=== PATIENT | male | born 1935 | race Caucasian/White ===

== ENCOUNTER 2017-08-25 11:07 | Inpatient (IN) | payer MEDICARE, SELFPAY ==
[2017-08-25] VITALS (10 sets, daily range): BP systolic 147–195; BP diastolic 74–95; PULSE 55–72; RESP 16–18; TEMP 36.6–37.1; O2SAT 95–98; BMI 28.0; BMI 27.6
--- NOTE | 2017-08-25 11:59 | EKG12_ITS ---
Test Reason : CP Blood Pressure : / mmHG Vent. Rate : 069 BPM Atrial Rate : 069 BPM P-R Int : 134 ms QRS Dur : 092 ms QT Int : 436 ms P-R-T Axes : 020 054 035 degrees QTc Int : 467 ms Normal sinus rhythm Nonspecific ST abnormality Abnormal ECG Confirmed by MATT GOLDEN, EVELYNE ([id number]), newspaper or periodical editor DEEPALI COOPER ([id number]) on 08/29/2017 2:20:17 PM Referred By: HARSHA/LC Confirmed By:EVELYNE GUTIERREZ MD
[2017-08-25 12:10] LABS: Absolute Lymphocyte Count 1.27 X10^3/ul (0.83-4.51); Absolute Neutrophil Count 4.6 X10^3/uL (2.0-7.7); Basophil# 0.02 X10^3/uL; Basophil% 0.3 % (0-1); Eosinophil# 0.01 X10^3/uL; Eosinophils% 0.2 % (0-5); Hematocrit 42.2 % (40-54); Hemoglobin 14.2 g/dl (13.0-16.5); Lymphocyte # 1.27 X10^3/ul (4.0); Lymphocyte % 20.1 % (19-41); Mean Corp Hgb Conc 33.6 g/gl (32-36); Mean Corpuscular Hgb 29.5 pg (27.0-32.0); Mean Corpuscular Volume 87.7 fL (80-94); Mean Platelet Vol. 10.9 fl (6.2-12.0); Monocyte# 0.46 X10^3/uL; Monocyte% 7.3 % (0-10); Neutrophil # 4.55 X10^3/uL (2.7-7.7); Neutrophil % 72.1 % (47-70); Platelet Count 170 K/mm3 (150-450); RBC Distribution Width CV 12.9 % (11.6-14.6); RBC Distribution Width SD 41.6 fl (35.1-43.9); Red Blood Count 4.81 M/mm3 (4.6-6.2); White Blood Count 6.3 K/mm3 (4.4-11.0)
--- NOTE | 2017-08-25 12:10 | RAD_ITS ---
STUDY: X-RAY CHEST REASON FOR EXAM: Male, 82 years old. Chest pain. TECHNIQUE: Single AP portable view of the chest. COMPARISON: None. FINDINGS: EKG electrodes are seen. Scattered calcified granulomas. The lungs are clear. There is no demonstrated pleural abnormality. Sternal cerclage wires and vascular clips are present from a prior sternotomy and coronary artery bypass graft procedure (CABG). Normal mediastinum and domingo. Normal visualized pulmonary arteries. There is atherosclerotic calcification of the aortic arch with tortuosity. There are diffuse degenerative changes of the visualized thoracic spine. There is degenerative osteoarthritis of the bilateral shoulders. There is no demonstrated abnormality of the visualized soft tissue structures of the upper abdomen. RAD/Chest 1 View (Portable) IMPRESSION: No acute amount is seen. Electronically Signed: Doug Antony MD at 12:58 EDT Tel [phone], Service support ,
[2017-08-25 12:11] LABS: POSITIVE COUNT NO; POSITIVE DIFFERENTIAL NO; POSITIVE MORPHOLOGY NO
[2017-08-25 12:25] LABS: Anion Gap 9 (5-15); BUN 14 mg/dL (7-18); BUN/Creat Ratio 15.6 RATIO (10-20); Calcium,Total 8.8 mg/dL (8.5-10.1); Chloride 105 mmol/L (98-107); EST Glomerular Filtration Rate 86 mL/min (>60); Est Glom Filt Rate - Afr Amer 104 mL/min (>60); Estimated Creatinine Clearance 56.12 ml/min; Glucose 106 mg/dL (74-106); Sodium Level 141 mmol/L (136-145)
--- NOTE | 2017-08-25 12:26 | ED.RN ---
critical troponin received of 0.76. Dr. Talley notified, no new orders at this time
[2017-08-25] MEDS: Nitroglycerin Oint 1 INCH PACKET TRANSDERM. (13:18)
[2017-08-25] MEDS: Enoxaparin 80 MG/0.8 ML Syringe SC (13:18)
[2017-08-25] MEDS: Clopidogrel Bisulfate 300 MG Tablet PO (13:18)
[2017-08-25] MEDS: Aspirin 81 MG TAB.CHEW 324 MG PO (13:18)
--- NOTE | 2017-08-25 13:18 | ED.VISSUMM ---
- ER Visit Summary Date of Service: 08/25/17 Chief Complaint: Chest pain History of Present Illness: The patient is a 82 M presents today with midsternal chest pain resolved with nitroglycerin. Patient had a CABG in March [address] [facility] [address] Tidwell. He states he does not currently take any medications. He has had no difficulties in recent months. Last night he developed a chest pain in the center of his chest but it was not bad. He woke this morning with it being severe noting nausea vomiting and sweating. He did take a nitroglycerin that he had which resolved his symptoms. Physical Examination: 163/87 heart rate 69 respirations are 18 pulse ox 98% temperature 98? Gen: Well-nourished well-developed Head: Normocephalic atraumatic Eyes: Perrl EOMI ENT: TMs clear no rhinorrhea moist mucous membranes Neck: Supple no lymphadenopathy no JVD nontender CVS: Regular rate rhythm no murmurs normal S1-S2 Respiratory: No distress clear to auscultation bilaterally chest nontender Abdomen: Soft nontender nondistended normal bowel sounds no masses Back: Nontender Extremity: Nontender no edema Skin: Normal color no rash Neuro: alert orientated ?3 CN II-XII intact normal strength sensation reflexes gait cerebellar Psych: Normal affect normal mood Test Results: EKG shows a sinus rhythm at a rate of 69. This shows a biphasic P wave in V1 through V3. CBC and chemistries negative. Troponin 0 0.761. Chest x-ray negative Emergency Department Course and Treatment: Patient received aspirin subcutaneous Lovenox 300 mg of Plavix and 1 inch of Nitropaste. I spoke with Dr. Montana for cardiology and our plan is admission. Dr. Trinh will be admitting for medicine. Impression: 1. NSTEMI 2. Unstable angina This note was generated with [employer] dictation software. It may contain incorrect words, spelling, and punctuation that were not noted in review of the chart prior to signing ED Disposition - Plan for ED Patient: Chief Complaint: Chest Pain Referrals: Asa Merrill DO [Primary Care Provider] -
--- NOTE | 2017-08-25 13:22 | ED.DCSUM_ITS ---
- ER Visit Summary Date of Service: 08/25/17 Chief Complaint: Chest pain History of Present Illness: The patient is a 82 M presents today with midsternal chest pain resolved with nitroglycerin. Patient had a CABG in March 2004 at [facility] by Dr. Tidwell. He states he does not currently take any medications. He has had no difficulties in recent months. Last night he developed a chest pain in the center of his chest but it was not bad. He woke this morning with it being severe noting nausea vomiting and sweating. He did take a nitroglycerin that he had which resolved his symptoms. Physical Examination: 163/87 heart rate 69 respirations are 18 pulse ox 98% temperature 98? Gen: Well-nourished well-developed Head: Normocephalic atraumatic Eyes: Perrl EOMI ENT: TMs clear no rhinorrhea moist mucous membranes Neck: Supple no lymphadenopathy no JVD nontender CVS: Regular rate rhythm no murmurs normal S1-S2 Respiratory: No distress clear to auscultation bilaterally chest nontender Abdomen: Soft nontender nondistended normal bowel sounds no masses Back: Nontender Extremity: Nontender no edema Skin: Normal color no rash Neuro: alert orientated ?3 CN II-XII intact normal strength sensation reflexes gait cerebellar Psych: Normal affect normal mood Test Results: EKG shows a sinus rhythm at a rate of 69. This shows a biphasic P wave in V1 through V3. CBC and chemistries negative. Troponin 0 0.761. Chest x-ray negative Emergency Department Course and Treatment: Patient received aspirin subcutaneous Lovenox 300 mg of Plavix and 1 inch of Nitropaste. I spoke with Dr. Montana for cardiology and our plan is admission. Dr. Trinh will be admitting for medicine. Impression: 1. NSTEMI 2. Unstable angina This note was generated with [employer] dictation software. It may contain incorrect words, spelling, and punctuation that were not noted in review of the chart prior to signing ED Disposition - Plan for ED Patient: Chief Complaint: Chest Pain Referrals: Asa Merrill DO [Primary Care Provider] -
--- NOTE | 2017-08-25 13:27 | PCM.HP.STD ---
Problem List (1) Acute shq-TS-geguvcjle myocardial infarction Status: Acute (2) Status post coronary artery bypass graft Status: Chronic (3) Coronary artery disease Status: Chronic History of Present Illness Date of Admission: 08/25/17 Chief Complaint: Chest pain. The patient is a 82 year old M with past medical history as mentioned above presented to the medicine because of chest pain. His symptoms started this morning after his breakfast when he was sitting with retrosternal chest pain, severe sharp pain, 10 out of 10 in severity, not radiating, associated with vomiting and drenching sweats, relieved by nitroglycerin and without aggravating factors. He denies associated shortness of breath, palpitation, dizziness or lightheadedness. He took nitroglycerin at home and it did help. At this time, is chest pain-free. He had a history of CABG 13 years ago but he is not taking any medication since then. He does not have a turkey farmer. In the emergency department, his blood pressure was slightly elevated, other vital signs were stable. His routine blood work was unremarkable. EKG revealed normal sinus rhythm, normal RI interval, normal QRS, normal QTC and no evidence of acute ischemic changes. Troponin is 0.76. Chest x-ray showed no acute findings. He was given 1 dose of aspirin 324 mg, Plavix 300 mg, Lovenox 80 mg ?1 and started on nitroglycerin patch. He is being admitted for acute non-ST elevation NE. Past Medical History Past Medical History (Chronic Problems): Chronic Problems Status post coronary artery bypass graft (Chronic) Coronary artery disease (Chronic) Allergies No Known Allergies Allergy (Verified 08/25/17 11:08) Home Medications: Ambulatory Orders Medication Instructions Recorded NK [NK] 08/25/17 Surgical History: coronary bypass surgery Psychiatric History: No pertinent psych hx Smoking Status: Never smoker Alcohol: None Drugs: None - *Family History Maternal History Items: No pertinent history Paternal History Items: No pertinent history Review of Systems Constitutional: Denies: Anorexia, Chills, Fever, Weakness, Fatigue Eyes: Denies: Blurred vision, Double vision, Drainage, Redness HEENT: Denies: Difficulty Hearing, Ear Pain, Eye Pain, Nasal Congestion, Sore Throat Cardiovascular: Reports: Chest Pain. Denies: Chest Tightness, Edema, Heaviness, Light Headedness, Orthopnea, Palpitations, Syncope Respiratory: Denies: Cough, Pleuritic Pain, Shortness of Breath, Sputum production, Wheezing Gastrointestinal: Reports: Nausea, Vomiting. Denies: Abdominal Pain, Constipation, Diarrhea Genitourinary: Denies: Dysuria, Frequency, Hematuria Musculoskeletal: Denies: Arm Pain, Back Pain, Foot Pain Skin: Denies: Dryness, Rash Neurological: Denies: Balance problems, Double vision, Change in Speech, Slurred speech, Confusion, Headaches, Incoordination, Numbness Psychiatric: Denies: Anxiety, Depression Endocrine: Denies: Change in Body Habitus, Polydipsia VTE Information - Inpt Only VTE Present on Admission: No VTE Mechan Device Prophylaxis: None VTE Pharm Prophylaxis ordered?: Yes Patient Problems: Active and Suspected Problems Acute uwh-BX-bbodweqdy myocardial infarction (Acute) - Physical Exam General: Alert, Oriented x3, Cooperative, No apparent distress HEENT: Atraumatic, PERRLA, EOMI, Normocephalic Oral: Moist Mucosa, No Gingival or Mucosal Lesions/ Ulcerations Neck: Supple, No JVD, Negative Carotid Bruits, Trachea Midline, Thyroid Normal Size and Texture Lungs: Clear to auscultation, No rhonchi, No wheeze, No rales, Diminished Cardiovascular: Regular rate, Regular Rhythm, Normal S1, Normal S2, No murmurs, PMI Normal Abdomen: Bowel Sounds Present, Soft, Non Tender, Non-Distended, No Hepato-splenomegaly, Obese Extremities: No clubbing, No cyanosis, No edema Skin: No rashes, No breakdown Lymphatic: No Cervical, Supraclavicular, or Inguinal Adenopathy Neurological: Cranial nerves II-XII grossly intact, Motor Exam 5/5 strength throughout Psych/Mental Status: Normal Affect, Appropriate, Alert and oriented to time, place, person, mood and affect Vital Signs Temp Pulse Resp BP Pulse Ox 98.0 F 69 18 163/87 H 98 08/25/17 11:09 08/25/17 12:33 08/25/17 12:33 08/25/17 12:33 08/25/17 12:33 Oxygen Flow Rate (L/min) 2 Oxygen Delivery Method Nasal Cannula Weight: 173 lb 8.061 oz Body Mass Index (BMI) 28.0 Laboratory Tests Past 24 Hrs 08/25/17 08/25/17 11:40 11:40 WBC 6.3 RBC 4.81 Hgb 14.2 Hct 42.2 MCV 87.7 MCH 29.5 MCHC 33.6 RDW 12.9 RDW Differential 41.6 Plt Count 170 MPV 10.9 Immature Gran % (Auto) 0.000 Neut % (Auto) 72.1 H Lymph % (Auto) 20.1 [place] % (Auto) 7.3 Eos % (Auto) 0.2 Baso % (Auto) 0.3 Absolute Neuts (auto) 4.6 Absolute Lymphs (auto) 1.27 Total Counted Not Reportable Sodium 141 Potassium 4.0 Chloride 105 Carbon Dioxide 27.0 Anion Gap 9 BUN 14 Creatinine 0.90 Estim Creat Clear Calc 56.12 Est GFR (MDRD) Af Amer 104 Est GFR (MDRD) Non-Af 86 BUN/Creatinine Ratio 15.6 Glucose 106 Calcium 8.8 Troponin I 0.761 H* Clinical Impression(s) from Imaging Studies Chest X-Ray 08/25/17 12:10 IMPRESSION: No acute amount is seen. Electronically Signed: Doug Antony MD at 12:58 EDT Tel [phone], Service support , Assessment/Plan All Active Problems Acute git-IS-dfpiaizmc myocardial infarction (Acute) This is an 82 years old male patient presented to the emergency room because of chest pain in context of history of CAD status post CABG 13 years ago, found to have no acute ischemic changes on EKG and found to have elevated troponin, diagnosed with acute non-ST elevation NE. #1 acute non-STEMI: EKG reviewed, no acute ischemic changes. Troponin is elevated at 0.67. Patient received aspirin, Plavix, Lovenox and Nitro-Bid. At this time, he is chest pain-free. Blood pressure slightly elevated, other vital signs are stable. Routine blood work is unremarkable. Plan: Admit to PCU, cardiac monitoring, serial cardiac enzymes, repeat EKG tomorrow morning, fasting lipid profile, cardiology consult, start aspirin, Coreg, lisinopril, atorvastatin, PT OT evaluation and treatment. #2 CAD status post CABG: This was 13 years ago. Patient is not taking any medication at home and he mentioned that he did not take any medication since his bypass surgery. He does not have a turkey farmer. Plan to start him on aspirin, statins, beta blockers, NEREIDA inhibitors. #3 DVT prophylaxis: Subcu Lovenox. This note was generated with [employer] dictation software. It may contain incorrect words, spelling, and punctuation that were not noted in checking the note before signing. Code Visit Inpatient E&M: 72248 Init Hosp L3
--- NOTE | 2017-08-25 13:33 | NURSING ---
Tiffani notifed may transfer patient to PCU.
--- NOTE | 2017-08-25 13:34 | HP.PCM_ITS ---
Problem List (1) Acute wut-ZN-bpnopmpig myocardial infarction Status: Acute (2) Status post coronary artery bypass graft Status: Chronic (3) Coronary artery disease Status: Chronic History of Present Illness Date of Admission: 08/25/17 Chief Complaint: Chest pain. The patient is a 82 year old M with past medical history as mentioned above presented to the medicine because of chest pain. His symptoms started this morning after his breakfast when he was sitting with retrosternal chest pain, severe sharp pain, 10 out of 10 in severity, not radiating, associated with vomiting and drenching sweats, relieved by nitroglycerin and without aggravating factors. He denies associated shortness of breath, palpitation, dizziness or lightheadedness. He took nitroglycerin at home and it did help. At this time, is chest pain-free. He had a history of CABG 13 years ago but he is not taking any medication since then. He does not have a yarn dyer. In the emergency department, his blood pressure was slightly elevated, other vital signs were stable. His routine blood work was unremarkable. EKG revealed normal sinus rhythm, normal MA interval, normal QRS, normal QTC and no evidence of acute ischemic changes. Troponin is 0.76. Chest x-ray showed no acute findings. He was given 1 dose of aspirin 324 mg, Plavix 300 mg, Lovenox 80 mg ? 1 and started on nitroglycerin patch. He is being admitted for acute non-ST elevation [place]. Past Medical History Past Medical History (Chronic Problems): Chronic Problems Status post coronary artery bypass graft (Chronic) Coronary artery disease (Chronic) Allergies No Known Allergies Allergy (Verified 08/25/17 11:08) Home Medications: Ambulatory Orders Medication Instructions Recorded NK [NK] 08/25/17 Surgical History: coronary bypass surgery Psychiatric History: No pertinent psych hx Smoking Status: Never smoker Alcohol: None Drugs: None - *Family History Maternal History Items: No pertinent history Paternal History Items: No pertinent history Review of Systems Constitutional: Denies: Anorexia, Chills, Fever, Weakness, Fatigue Eyes: Denies: Blurred vision, Double vision, Drainage, Redness HEENT: Denies: Difficulty Hearing, Ear Pain, Eye Pain, Nasal Congestion, Sore Throat Cardiovascular: Reports: Chest Pain. Denies: Chest Tightness, Edema, Heaviness , Light Headedness, Orthopnea, Palpitations, Syncope Respiratory: Denies: Cough, Pleuritic Pain, Shortness of Breath, Sputum production, Wheezing Gastrointestinal: Reports: Nausea, Vomiting. Denies: Abdominal Pain, Constipation, Diarrhea Genitourinary: Denies: Dysuria, Frequency, Hematuria Musculoskeletal: Denies: Arm Pain, Back Pain, Foot Pain Skin: Denies: Dryness, Rash Neurological: Denies: Balance problems, Double vision, Change in Speech, Slurred speech, Confusion, Headaches, Incoordination, Numbness Psychiatric: Denies: Anxiety, Depression Endocrine: Denies: Change in Body Habitus, Polydipsia VTE Information - Inpt Only VTE Present on Admission: No VTE Mechan Device Prophylaxis: None VTE Pharm Prophylaxis ordered?: Yes Patient Problems: Active and Suspected Problems Acute agh-CL-awugtyoaz myocardial infarction (Acute) - Physical Exam General: Alert, Oriented x3, Cooperative, No apparent distress HEENT: Atraumatic, PERRLA, EOMI, Normocephalic Oral: Moist Mucosa, No Gingival or Mucosal Lesions/ Ulcerations Neck: Supple, No JVD, Negative Carotid Bruits, Trachea Midline, Thyroid Normal Size and Texture Lungs: Clear to auscultation, No rhonchi, No wheeze, No rales, Diminished Cardiovascular: Regular rate, Regular Rhythm, Normal S1, Normal S2, No murmurs, PMI Normal Abdomen: Bowel Sounds Present, Soft, Non Tender, Non-Distended, No Hepato- splenomegaly, Obese Extremities: No clubbing, No cyanosis, No edema Skin: No rashes, No breakdown Lymphatic: No Cervical, Supraclavicular, or Inguinal Adenopathy Neurological: Cranial nerves II-XII grossly intact, Motor Exam 5/5 strength throughout Psych/Mental Status: Normal Affect, Appropriate, Alert and oriented to time, place, person, mood and affect Vital Signs Temp Pulse Resp BP Pulse Ox 98.0 F 69 18 163/87 H 98 08/25/17 11:09 08/25/17 12:33 08/25/17 12:33 08/25/17 12:33 08/25/17 12:33 Oxygen Flow Rate (L/min) 2 Oxygen Delivery Method Nasal Cannula Weight: 173 lb 8.061 oz Body Mass Index (BMI) 28.0 Laboratory Tests Past 24 Hrs 08/25/17 08/25/17 11:40 11:40 WBC 6.3 RBC 4.81 Hgb 14.2 Hct 42.2 MCV 87.7 MCH 29.5 MCHC 33.6 RDW 12.9 RDW Differential 41.6 Plt Count 170 MPV 10.9 Immature Gran % (Auto) 0.000 Neut % (Auto) 72.1 H Lymph % (Auto) 20.1 [place] % (Auto) 7.3 Eos % (Auto) 0.2 Baso % (Auto) 0.3 Absolute Neuts (auto) 4.6 Absolute Lymphs (auto) 1.27 Total Counted Not Reportable Sodium 141 Potassium 4.0 Chloride 105 Carbon Dioxide 27.0 Anion Gap 9 BUN 14 Creatinine 0.90 Estim Creat Clear Calc 56.12 Est GFR (MDRD) Af Amer 104 Est GFR (MDRD) Non-Af 86 BUN/Creatinine Ratio 15.6 Glucose 106 Calcium 8.8 Troponin I 0.761 H* Clinical Impression(s) from Imaging Studies Chest X-Ray 08/25/17 12:10 IMPRESSION: No acute amount is seen. Electronically Signed: Doug Antony MD at 12:58 EDT Tel [phone], Service support , Assessment/Plan All Active Problems Acute brs-LE-egedegism myocardial infarction (Acute) This is an 82 years old male patient presented to the emergency room because of chest pain in context of history of CAD status post CABG 13 years ago, found to have no acute ischemic changes on EKG and found to have elevated troponin, diagnosed with acute non-ST elevation NH. #1 acute non-STEMI: EKG reviewed, no acute ischemic changes. Troponin is elevated at 0.67. Patient received aspirin, Plavix, Lovenox and Nitro-Bid. At this time, he is chest pain-free. Blood pressure slightly elevated, other vital signs are stable. Routine blood work is unremarkable. Plan: Admit to PCU , cardiac monitoring, serial cardiac enzymes, repeat EKG tomorrow morning, fasting lipid profile, cardiology consult, start aspirin, Coreg, lisinopril, atorvastatin, PT OT evaluation and treatment. #2 CAD status post CABG: This was 13 years ago. Patient is not taking any medication at home and he mentioned that he did not take any medication since his bypass surgery. He does not have a yarn dyer. Plan to start him on aspirin, statins, beta blockers, NEREIDA inhibitors. #3 DVT prophylaxis: Subcu Lovenox. This note was generated with [employer] dictation software. It may contain incorrect words, spelling, and punctuation that were not noted in checking the note before signing. Code Visit Inpatient E&M: 81639 Init Hosp L3
--- NOTE | 2017-08-25 13:52 | EKG12_ITS ---
Test Reason : Blood Pressure : / mmHG Vent. Rate : 065 BPM Atrial Rate : 065 BPM P-R Int : 146 ms QRS Dur : 088 ms QT Int : 442 ms P-R-T Axes : 008 042 061 degrees QTc Int : 459 ms Normal sinus rhythm Nonspecific ST abnormality Abnormal ECG When compared with ECG of 09-APR-2004 06:41, No significant change was found Confirmed by MATT GOLDEN, EVELYNE ([id number]), advertising editor DEEPALI COOPER ([id number]) on 08/30/2017 1:12:18 PM Referred By: CARMEN Confirmed By:EVELYNE GUTIERREZ MD
[2017-08-25] MEDS: 0.9% NaCl Peripheral Flush Adult/Peds IV (14:37)
[2017-08-25] MEDS: 0.9% Normal Saline 1,000 ML 75 ML IV (14:37)
[2017-08-25 14:57] LABS: Hemoglobin A1c 6.3 % (4.2-6.3)
--- NOTE | 2017-08-25 16:19 | ECHOD_ITS ---
Reason For Study: Chest Pain Procedure This was a 2D Doppler, Color Flow transthoracic echocardiogram. Exam performed portable in patient room. Left Ventricle Mild concentric left ventricular hypertrophy. The estimated ejection fraction is 65 %. Stage 1 diastolic dysfunction. No regional wall motion abnormalities noted. Right Ventricle Normal size and thickness. Normal systolic function. Atria Normal left atrium. Normal right atrium. Normal atrial septum. Mitral Valve The mitral valve is structurally normal. No prolapse or stenosis seen. Tricuspid Valve Normal tricuspid valve. Unable to estimate RV systolic pressure due to inadequate jet, pulmonary artery pressure probably normal. Aortic Valve Trisinus/trileaflet aortic valve. Mild diffuse aortic valve thickening. Trivial aortic valve insufficiency. Pulmonic Valve Normal pulmonic valve. Mild (1+) pulmonic valve insufficiency identified. Great Vessels Normal aortic root. Normal arch. Normal inferior vena cava. Inferior vena cava collapse with sniff. Pericardium/Pleural No pericardial effusion. MMode/2D Measurements & Calculations LVIDd: 3.8 cm IVSd: 1.3 cm Ao root diam: 3.5 cm LVIDs: 2.7 cm LVPWd: 1.3 cm RVDd: 3.0 cm FS: 29.4 % LAV(MOD-bp): 30.8 ml EDV(MOD-sp4): 67.3 ml SV(MOD-sp4): 49.0 ml LAV(MOD-bp) Indexed: 16.4 ml/m2 ESV(MOD-sp4): 18.3 ml LAV(MOD-sp2): 25.3 ml EF(MOD-sp4): 72.8 % LAV(MOD-sp4): 37.4 ml LA A4 area: 16.8 cm2 RA A4 area: 11.0 cm2 Doppler Measurements & Calculations MV E max eze: 49.6 cm/sec Lat Peak E' Eze: 5.7 cm/sec Med Peak E' Eze: 4.5 cm/sec MV A max eze: 90.2 cm/sec E/E' lat: 8.6 E/E' med: 11.0 MV E/A: 0.55 Ao V2 max: 120.2 cm/sec LV V1 max: 88.5 cm/sec PA V2 max: 65.3 cm/sec Ao max P.8 mmHg LV V1 max P.1 mmHg Ao V2 mean: 89.3 cm/sec Ao mean P.4 mmHg Ao V2 VTI: 25.6 cm PI end-d eze: 99.4 cm/sec Interpretation Summary The estimated ejection fraction is 65 %. Stage 1 diastolic dysfunction. Unable to estimate RV systolic pressure due to inadequate jet, pulmonary artery pressure probably normal. Trivial aortic valve insufficiency. Mild concentric left ventricular hypertrophy. There is no comparison study available. Ordering Physician: Wei Montana Performed By: Mabel Cummings YOLANDA, RVT
[2017-08-25] MEDS: Carvedilol 3.125 MG TABLET PO (22:19)
[2017-08-25] MEDS: Atorvastatin Calcium 40 MG Tablet PO (22:19)
[2017-08-26 03:00] VITALS: PULSE 63
[2017-08-26] MEDS: Acetaminophen 325 MG Tablet 650 MG PO (03:58)
[2017-08-26 04:15] VITALS: BP 138/76; PULSE 62; RESP 18; TEMP 36.6; O2SAT 95
[2017-08-26] MEDS: 0.9% Normal Saline 1,000 ML 75 ML IV (05:05)
[2017-08-26 05:55] LABS: Absolute Neutrophil Count 3.9 X10^3/uL (2.0-7.7); Basophil# 0.02 X10^3/uL; Basophil% 0.3 % (0-1); Eosinophil# 0.08 X10^3/uL; Eosinophils% 1.2 % (0-5); Hematocrit 37.2 % (40-54); Hemoglobin 12.7 g/dl (13.0-16.5); Lymphocyte % 26.2 % (19-41); Mean Corp Hgb Conc 34.1 g/gl (32-36); Mean Corpuscular Volume 87.9 fL (80-94); Mean Platelet Vol. 10.6 fl (6.2-12.0); Monocyte# 0.83 X10^3/uL; Monocyte% 12.8 % (0-10); Neutrophil # 3.85 X10^3/uL (2.7-7.7); Neutrophil % 59.3 % (47-70); Platelet Count 141 K/mm3 (150-450); RBC Distribution Width CV 12.7 % (11.6-14.6); RBC Distribution Width SD 40.6 fl (35.1-43.9); Red Blood Count 4.23 M/mm3 (4.6-6.2); White Blood Count 6.5 K/mm3 (4.4-11.0)
--- NOTE | 2017-08-26 05:55 | EKG12_ITS ---
Test Reason : AM EKG Blood Pressure : / mmHG Vent. Rate : 060 BPM Atrial Rate : 060 BPM P-R Int : 150 ms QRS Dur : 094 ms QT Int : 488 ms P-R-T Axes : 025 055 083 degrees QTc Int : 488 ms Normal sinus rhythm Left ventricular hypertrophy Prolonged QT Abnormal ECG Confirmed by HOPE GOLDEN, GÓMEZ ([id number]), editorial manager DEEPALI COOPER ([id number]) on 09/01/2017 2:14:57 PM Referred By: NATASHA Confirmed By:GÓMEZ ARNETT MD
[2017-08-26 05:57] LABS: POSITIVE COUNT NO; POSITIVE DIFFERENTIAL NO; POSITIVE MORPHOLOGY NO
[2017-08-26 06:01] LABS: International Normalized Ratio 1.1; Partial Thromboplast Time 28.6 Seconds (24.1-36.2); Prothrombin Time (Protime)PT. 13.8 SECONDS (11.7-14.9)
[2017-08-26 06:19] VITALS: BP 146/72; PULSE 60; RESP 18; TEMP 37; O2SAT 97
[2017-08-26 06:24] LABS: Anion Gap 8 (5-15); BUN 12 mg/dL (7-18); BUN/Creat Ratio 14.6 RATIO (10-20); Chloride 109 mmol/L (98-107); Cholesterol 157 mg/dL (200); Creatinine, Serum 0.82 mg/dL (0.70-1.30); EST Glomerular Filtration Rate 95 mL/min (>60); Est Glom Filt Rate - Afr Amer 115 mL/min (>60); Glucose 102 mg/dL (74-106); High Density Lipoprotein 36 mg/dL; Potassium 3.9 mmol/L (3.5-5.1); Sodium Level 142 mmol/L (136-145); Triglycerides 133 mg/dL; Very Low Density Lipoprotein 27 mg/dL (5-40)
[2017-08-26] MEDS: Aspirin E.C. 81 MG Tablet PO (06:26)
[2017-08-26] MEDS: DiphenhydrAMINE 25 MG Capsule 50 MG PO (06:26)
[2017-08-26] MEDS: Carvedilol 3.125 MG TABLET PO (06:26)
[2017-08-26] MEDS: Lisinopril 10 MG Tablet PO (06:26)
--- NOTE | 2017-08-26 08:48 | CL.D_ITS ---
Patient Name: BEBETO COOPER Study Date: 08/26/2017 Performing: Wei Montana MD Ht: 66.14 inches 168 cm : 1935 Wt: 171.96 lbs 78 kg Age: 82 Gender: male BSA: 1.88 PROCEDURE(S) PERFORMED [id number]-TTA/COR/LV/CABG [id number] RENAL ANGIO WITH HEART CATH CLINICAL PROFILE AND INDICATIONS Patient presents with NSTEMI for urgent cardiac cath Indications: ACS <= 24 hrs, New Onset Angina <= 2 months, Worsening Angina, Stable Known CAD Heart Failure: None Stress/Imaging Stress/Image Study Performed: No Angina Classification Anginal Classification w/in 2 Weeks: CCS IV CAD Presentations: Non-STEMI. Symptom onset Date/Time: 08/25/2017 Time Not Available Comorbidities/Risk Factors: Hypertension Dyslipidemia Prior CABG CONCLUSIONS Triple vessel CAD of the LM, LAD, OM, RCA Widely patent SVG to RCA Widely patent SVG to DIAG Widely patent KUNZ To OM#1. Severe distal LM at bifurcation of LAD and LCX most likely culprit lesion. RECOMMENDATIONS Referred for immediate PCI of unprotected LM to [facility] with Dr Gutiérrez Management as per referring Repairer General DESCRIPTION OF PROCEDURE The patient arrived to the procedure lab. The risks and benefits of the procedure as well as a full d escription of our services here and current unavailability of surgical backup were fully explained to the patient and/or their significant other prior to the catheterization. The Timeout was completed, verifying the correct patient and procedure. The patient's procedural site was prepped and draped in the usual fashion. Local anesthetic was given subcutaneously to right groin region with Lidocaine 2%. Using a modified Seldinger technique, arterial access was obtained via the right femoral artery, a 4 Fr sheath was inserted Left Coronary Artery selective angiography was performed in multiple views us ing a 4 Fr. JL5 catheter. Right Coronary Artery selective angiography was then performed in multiple views using a 4 Fr. 3DRC catheter. Saphenous Vein graft to the DIAG 1 selective angiography was perfo rmed in multiple views using a 4 Fr. 3DRC catheter. Left internal mammary artery graft to the OM 1 se lective angiography was performed in multiple views using a 4 Fr. 3DRC catheter. Left internal mammar y artery graft to the OM 1 selective angiography was performed in multiple views using a 4 Fr. IM cat heter. Saphenous Vein graft to the RPDA selective angiography was performed in multiple views using a 4 Fr. AR MOD 2 catheter. Left Ventriculography was performed in TEE projection using a 4 Fr. Pigtail catheter. Descending aorta selective angiography was then performed in single view.The arterial silva th was sutured in place with heparinized normal saline under pressure CORONARY ANGIOGRAPHY DOMINANCE: Right Dominant LEFT HEART ASSESSMENT Left Ventricular Ejection Fraction: by LV Gram 65 % Normal LV wall motion Normal Left Ventricular systolic function Elevated Left Ventricular End Diastolic Pressure LEFT MAIN: 85 % Stenosis LEFT ANTERIOR DECENDING ARTERY: MID LAD: is occluded CIRCUMFLEX ARTERY: Mild luminal irregularities less than 30% OM 1: Proximal - 99 % Stenosis RIGHT CORONARY ARTERY: PROX RCA: is occluded GRAFTS: KUNZ graft to the 1st OM is patent Saphenous Vein graft to the 1st Diagonal is patent Saphenous Vein graft to the RCA has a mid lesion of 20 % PERIPHERAL FINDINGS: Abdominal Aorta: Aneurysm cm Abdominal Aorta: Tortuous COMPLICATIONS No Complications PROCEDURE MEDICATIONS Oxygen: 2 L/min via nasal cannula Plavix 75 mg PO 08/26/2017 07:06:55 SUMMARY OF HEMODYNAMIC DATA Time AIR REST ECG 07:21:16 AO 160/72 (105) SA 07:47:23 LV 155/-12, 17 08:18:07 LV 150/-12, 16 08:18:14 LVp 155/-15, 18 08:18:35 AOp 155/62 (96) 08:18:40 Signed By Wei Montana MD On 08/26/2017 08:47:37 Wei Montana MD
[2017-08-26 08:55] LABS: Bacteria 0 SEEN /hpf (None Seen); Mucous, Urine 0 SEEN /hpf (<or=2+); Squamous Epithelial Cells - UA 0 SEEN /hpf (0-5); White Blood Cells 0 SEEN /hpf (0-5)
[2017-08-26 09:00] LABS: Color, Urine Yellow (Yellow); Glucose, Dipstick Normal (Normal); Ketone-Dipstick Negative (Negative); Leukocyte Esterase-Dipstick Negative /ul (Negative); Nitrite-Dipstick Negative (Negative); Occult Blood-Urine Negative /ul (Negative); Protein-Dipstick Negative (Negative); Urine Bilirubin Dipstick Negative (Negative); Urine Clarity Clear (Clear); Urine Urobilinogen Normal (Normal)
[2017-08-26 09:08] LABS: Red Blood Cells-Urine 0-5 SEEN /hpf (0-5)
--- NOTE | 2017-08-26 10:51 | PCM.DC.SUM ---
<Alicia Cannon - Last Filed: 08/26/17 11:05> Discharge Date and Diagnosis Date of Admission: 08/25/17 Date of Discharge: 08/26/17 - Primary Discharge Diagnosis Active and Suspected Problems 1. Acute psv-QY-oxksgsmxo myocardial infarction secondary to triple-vessel CAD of the LM, LAD, OM, RCA requiring immediate transfer for PCI. - Secondary Discharge Diagnosis Chronic Problems Status post coronary artery bypass graft (Chronic) Coronary artery disease (Chronic) Hospital Course and Treatment Imaging Results: Diagnostic Data Chest X-Ray 08/25/17 12:10 IMPRESSION: No acute amount is seen. Electronically Signed: Doug Antony MD at 12:58 EDT Tel [phone], Service support , Dr. Montana- Cardiology Operations: None Procedures: Cardiac catheterization Summary of Care Provided: The patient is a 82 year old M admitted 08/25/2017 due to chest pain. Patient was noted to have non-STEMI. EKG on admission showed sinus rhythm without evidence of ischemic changes. Chest x-ray without acute findings. Patient has a past medical history of CAD status post CABG approximately 13 years ago. 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 Patient underwent cardiac catheterization 08/26/2017 which demonstrated triple vessel CAD of the LM, LAD, OM, RCA. LVEF noted to be 65%. Left main 85% stenosis. Mid LAD occluded. OM1 proximal 99% stenosis. Proximal RCA occluded. Patient was referred for immediate PCI of unprotected LM. Patient stable at time of transfer to [facility]. Encourage patient to follow recommended medications and follow-up following discharge from [facility]. Patient seen and Room Service Clerk prior to transfer. Denies chest pain. Right groin site intact. Vital signs stable. Alert, oriented, no acute distress. Lungs clear. Heart rate regular in rate and rhythm. Neuro grossly intact. Abdomen soft, nontender. Normal affect. This patient was seen by AUGUSTO Cole under the supervision of Dr. Harley. Home Medications: Medications to take at Discharge NK [NK] 08/25/17 Primary Care Physician: Asa Merrill DO [Primary Care Provider] - Disposition: Acute care Hospital Minutes spent on discharge:: 35 Patient Condition:: Stable Medical Necessity - Tobacco Use Smoking Status: Never smoker Meaningful Use Info Meaningful Use Diagnoses (Choose all that apply): None applicable <Mayito Harley - Last Filed: 08/26/17 13:19> Discharge Date and Diagnosis - Secondary Discharge Diagnosis Chronic Problems Status post coronary artery bypass graft (Chronic) Coronary artery disease (Chronic) Hospital Course and Treatment Summary of Care Provided: The patient is a 82 year old M with multiple comorbidities including previous CABG who presented with chest pain and assessment of acute non-STEMI was made patient underwent left heart catheterizations findings included an 85% left main stenosis. Case was discussed with Dr. Montana who did perform the procedure and recommended for patient to be transferred to a tertiary care center for subsequent management. Hospital course as elicited above by Alicia Cannon OUTSIDE PLANT SUPERVISOR~C. Disposition: Patient was transferred to a [facility] Code Visit Inpatient E&M: 11907 Disch Hosp
--- NOTE | 2017-08-26 11:04 | DS.PCM_ITS ---
<Alicia Cannon - Last Filed: 08/26/17 11:05> Discharge Date and Diagnosis Date of Admission: 08/25/17 Date of Discharge: 08/26/17 - Primary Discharge Diagnosis Active and Suspected Problems 1. Acute blo-YX-jytyvprdi myocardial infarction secondary to triple-vessel CAD of the LM, LAD, OM, RCA requiring immediate transfer for PCI. - Secondary Discharge Diagnosis Chronic Problems Status post coronary artery bypass graft (Chronic) Coronary artery disease (Chronic) Hospital Course and Treatment Imaging Results: Diagnostic Data Chest X-Ray 08/25/17 12:10 IMPRESSION: No acute amount is seen. Electronically Signed: Doug Antony MD at 12:58 EDT Tel [phone], Service support , Dr. Montana- Cardiology Operations: None Procedures: Cardiac catheterization Summary of Care Provided: The patient is a 82 year old M admitted 08/25/2017 due to chest pain. Patient was noted to have non-STEMI. EKG on admission showed sinus rhythm without evidence of ischemic changes. Chest x-ray without acute findings. Patient has a past medical history of CAD status post CABG approximately 13 years ago. 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 Patient underwent cardiac catheterization 08/26/2017 which demonstrated triple vessel CAD of the LM, LAD, OM, RCA. LVEF noted to be 65%. Left main 85% stenosis. Mid LAD occluded. OM1 proximal 99% stenosis. Proximal RCA occluded. Patient was referred for immediate PCI of unprotected LM. Patient stable at time of transfer to [facility]. Encourage patient to follow recommended medications and follow-up following discharge from [facility]. Patient seen and Cotton Washer prior to transfer. Denies chest pain. Right groin site intact. Vital signs stable. Alert, oriented, no acute distress. Lungs clear. Heart rate regular in rate and rhythm. Neuro grossly intact. Abdomen soft, nontender. Normal affect. This patient was seen by AUGUSTO Cole under the supervision of Dr. Harley. Home Medications: Medications to take at Discharge NK [NK] 08/25/17 Primary Care Physician: Asa Merrill DO [Primary Care Provider] - Disposition: Acute care Hospital Minutes spent on discharge:: 35 Patient Condition:: Stable Medical Necessity - Tobacco Use Smoking Status: Never smoker Meaningful Use Info Meaningful Use Diagnoses (Choose all that apply): None applicable <Mayito Harley - Last Filed: 08/26/17 13:19> Discharge Date and Diagnosis - Secondary Discharge Diagnosis Chronic Problems Status post coronary artery bypass graft (Chronic) Coronary artery disease (Chronic) Hospital Course and Treatment Summary of Care Provided: The patient is a 82 year old M with multiple comorbidities including previous CABG who presented with chest pain and assessment of acute non-STEMI was made patient underwent left heart catheterizations findings included an 85% left main stenosis. Case was discussed with Dr. Montana who did perform the procedure and recommended for patient to be transferred to a tertiary care center for subsequent management. Hospital course as elicited above by Alicia Cannon CAMPUS SECURITY DIRECTOR~C. Disposition: Patient was transferred to a [facility] Code Visit Inpatient E&M: 90509 Disch Hosp
== END 2017-08-26 13:30 | disposition short-term general hospital (02) | DRG 281 ==
LOC: ED 12:53 → PCU 13:35
PROVIDERS: Internal Medicine Cardiovascular Disease; Admitting Provider Hospitalist; Emergency Provider Emergency Medicine; Family Provider Family Medicine; PCP Family Medicine; Visit Provider Internal Medicine
DX: I21.4 Non-ST elevation (NSTEMI) myocardial infarction (principal); I25.719 Atherosclerosis of autologous vein coronary artery bypass graft(s) with unspecified angina pectoris; I25.119 Atherosclerotic heart disease of native coronary artery with unspecified angina pectoris; Z95.1 Presence of aortocoronary bypass graft; I71.4 Abdominal aortic aneurysm, without rupture
CPT/HCPCS: 36415; 71045; 75625; 80048; 80061; 81001; 83036; 84484; 85025; 85610; 85730; 93005; 93306; 93459; 99283; J7030; Q9957; Q9967; A4216; C1769; C1894

== ENCOUNTER 2018-09-01 10:01 | Observation (INO) | payer MEDICARE, SELFPAY ==
[2018-09-01] VITALS (14 sets, daily range): BP systolic 158–222; BP diastolic 72–105; PULSE 64–85; RESP 12–23; TEMP 36.6–37.2; O2SAT 20–98; BMI 22.9; BMI 23.0; BMI 27.0
--- NOTE | 2018-09-01 10:25 | EKG12_ITS ---
Test Reason : Blood Pressure : / mmHG Vent. Rate : 069 BPM Atrial Rate : 069 BPM P-R Int : 146 ms QRS Dur : 086 ms QT Int : 418 ms P-R-T Axes : 005 048 108 degrees QTc Int : 447 ms Sinus rhythm with Premature atrial complexes Possible Left atrial enlargement Nonspecific ST and T wave abnormality Abnormal ECG Confirmed by MATT GOLDEN, EVELYNE ([id number]), graphics editor ISA GARCIA ([id number]) on 09/05/2018 2:13:58 PM Referred By: HARSHA Confirmed By:EVELYNE GUTIERREZ MD
--- NOTE | 2018-09-01 10:25 | RAD_ITS ---
STUDY: X-RAY CHEST REASON FOR EXAM: Male, 83 years old. Chest pain. Hypertension. TECHNIQUE: Single AP portable view of the chest. COMPARISON: Comparison is made with prior study dated August 25, 2017. FINDINGS: The lungs are clear and expanded. There is no demonstrated pleural abnormality. Sternal cerclage wires and vascular clips are present from a prior sternotomy and coronary artery bypass graft procedure (CABG). Normal mediastinum and domingo. Normal visualized pulmonary arteries. There is atherosclerotic calcification of the aortic arch with tortuosity. There are diffuse degenerative changes of the visualized thoracic spine. There is degenerative osteoarthritis of the bilateral shoulders. There is no demonstrated abnormality of the visualized soft tissue structures of the upper abdomen. RAD/Chest 1 View (Portable) IMPRESSION: No acute abnormality is seen. Electronically Signed: Doug Antony, at 11:03 EDT , Service support ,
--- NOTE | 2018-09-01 10:25 | CT_ITS ---
STUDY: CT BRAIN WITHOUT CONTRAST REASON FOR EXAM: Male, 83 years old. Hypertension. RADIATION DOSAGE (If Supplied By Facility): CTDIvol = ( 44.99 ) mGy, DLP = ( 796.11 ) mGycm TECHNIQUE: Transaxial CT imaging of the brain was performed without administration of intravenous contrast material. Individualized dose optimization techniques were used for this CT. COMPARISON: No relevant priors. FINDINGS: Normal soft tissue structures. Normal calvarium. There is mild cerebral atrophy with widening of the extra-axial spaces and ventricular dilatation. There are areas of decreased attenuation within the white matter tracts of the supratentorial brain, consistent with microvascular disease changes. 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 Normal brainstem. Normal cerebellum. There is no intracranial hemorrhage. There are no findings of an acute ischemic infarction. Atherosclerotic calcification of the vertebral arteries and cavernous portions of the internal carotid arteries bilaterally. Normal visualized paranasal sinuses. CT/Brain/Head without Contrast IMPRESSION: Chronic involutional changes of the brain. Electronically Signed: Doug Antony, at 11:07 EDT , Service support ,
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
[2018-09-01 10:57] LABS: Absolute Lymphocyte Count 1.76 X10^3/ul (0.83-4.51); Absolute Neutrophil Count 3.8 X10^3/uL (2.0-7.7); Basophil# 0.02 X10^3/uL; Basophil% 0.3 % (0-1); Eosinophil# 0.06 X10^3/uL; Eosinophils% 0.9 % (0-5); Hematocrit 42.7 % (40-54); Hemoglobin 14.5 g/dl (13.0-16.5); Lymphocyte # 1.76 X10^3/ul (4.0); Lymphocyte % 27.5 % (19-41); Mean Corpuscular Hgb 29.3 pg (27.0-32.0); Mean Corpuscular Volume 86.3 fL (80-94); Mean Platelet Vol. 11.3 fl (6.2-12.0); Monocyte# 0.73 X10^3/uL; Monocyte% 11.4 % (0-10); Neutrophil # 3.83 X10^3/uL (2.7-7.7); Neutrophil % 59.9 % (47-70); Platelet Count 162 K/mm3 (150-450); RBC Distribution Width CV 12.6 % (11.6-14.6); RBC Distribution Width SD 39.2 fl (35.1-43.9); Red Blood Count 4.95 M/mm3 (4.6-6.2); White Blood Count 6.4 K/mm3 (4.4-11.0)
[2018-09-01 10:59] LABS: POSITIVE COUNT NO; POSITIVE DIFFERENTIAL NO; POSITIVE MORPHOLOGY NO
[2018-09-01 11:01] LABS: Anion Gap 3 (5-15); BUN 18 mg/dL (7-18); BUN/Creat Ratio 15.8 RATIO (10-20); Calcium,Total 8.8 mg/dL (8.5-10.1); Chloride 104 mmol/L (98-107); Creatinine, Serum 1.14 mg/dL (0.70-1.30); EST Glomerular Filtration Rate 65 mL/min (>60); Est Glom Filt Rate - Afr Amer 79 mL/min (>60); Estimated Creatinine Clearance 49.52 ml/min; Glucose 134 mg/dL (74-106); Potassium 4.4 mmol/L (3.5-5.1); Sodium Level 136 mmol/L (136-145)
[2018-09-01] MEDS: hydrALAZINE 20 MG/ML Vial IV (11:19)
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
--- NOTE | 2018-09-01 12:35 | ECHOD_ITS ---
Reason For Study: TIA/CVA Procedure This was a 2D Doppler, Color Flow transthoracic echocardiogram. Exam performed portable in patient room. Left Ventricle Normal LV size. Moderate concentric left ventricular hypertrophy. Left ventricular systolic function is normal. The estimated ejection fraction is 65 %. Stage 1 diastolic dysfunction. No regional wall motion abnormalities noted. Right Ventricle Normal RV size. Normal systolic function. Atria Normal left atrium. Normal right atrium. Bubble contrast study negative for right to left interatrial shunt. Mitral Valve Normal mitral valve. Trivial eccentric mitral valve insufficiency. Tricuspid Valve Normal tricuspid valve. Aortic Valve Normal aortic valve. Mild (1+) eccentric aortic valve insufficiency. Pulmonic Valve Normal pulmonic valve. Great Vessels Calcified aortic root. The pulmonary artery is normal size. Normal inferior vena cava. Pericardium/Pleural No pericardial effusion. Medication Performed a rapid injection of agitated mix of 9 cc saline and 1cc air to assess for atrial septal defect. MMode/2D Measurements & Calculations LVIDd: 4.3 cm IVSd: 1.6 cm Ao root diam: 3.7 cm LVIDs: 2.7 cm LVPWd: 1.5 cm RVDd: 3.2 cm FS: 37.7 % LAV(MOD-bp): 48.6 ml LVAd ap4: 21.2 cm2 SV(MOD-sp4): 36.6 ml LAV(MOD-bp) Indexed: 24.8 ml/m2 EDV(MOD-sp4): 50.9 ml LAV(MOD-sp2): 44.0 ml EDV(sp4-el): 51.0 ml LAV(MOD-sp4): 49.9 ml LVAs ap4: 10.3 cm2 ESV(MOD-sp4): 14.3 ml ESV(sp4-el): 14.0 ml EF(MOD-sp4): 71.9 % EF(sp4-el): 72.6 % SV(sp4-el): 37.0 ml LA A4 area: 20.1 cm2 LA dimension(2D): 4.2 cm RA A4 area: 13.8 cm2 Doppler Measurements & Calculations MV E max eze: 49.1 cm/sec Lat Peak E' Eze: 5.1 cm/sec Med Peak E' Eze: 4.1 cm/sec MV A max eze: 92.9 cm/sec E/E' lat: 9.6 E/E' med: 11.9 MV E/A: 0.53 Ao V2 max: 133.5 cm/sec LV V1 max: 91.7 cm/sec PA V2 max: 92.5 cm/sec Ao max P.1 mmHg LV V1 max P.4 mmHg Ao V2 mean: 86.0 cm/sec Ao mean P.4 mmHg Ao V2 VTI: 27.5 cm PI end-d eze: 123.3 cm/sec Interpretation Summary Normal LV size. Moderate concentric left ventricular hypertrophy. Left ventricular systolic function is normal. The estimated ejection fraction is 65 %. Stage 1 diastolic dysfunction. Mild (1+) eccentric aortic valve insufficiency. Ordering Physician: German Hernandez Referring Physician: Asa Merrill Performed By: Mabel Cummings, YOLANDA, RVT
--- NOTE | 2018-09-01 12:35 | MRI_ITS ---
STUDY: MRI BRAIN WITH AND WITHOUT CONTRAST REASON FOR EXAM: Male, 83 years old. Blurred vision for 4 days TECHNIQUE: Standardized multiplanar fat and water weighted pulse sequences were obtained. 14ML IV Dotarem was administered for the contrast portion of the examination. COMPARISON: 01 September 2018 FINDINGS: Examination is mildly to moderately limited due to motion artifact predominantly affecting the postcontrast images. Diagnostic information is available. There is no acute infarct. There are no intracranial hemorrhagic findings. There is no mass effect, midline shift, extra parenchymal fluid collections or hydrocephalus. There is moderate global brain atrophy. There is moderate chronic white matter involutional ischemic change predominantly in the deep periventricular and pontine distribution. 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 There is a dilated perivascular space versus small remote infarct in the left lentiform nucleus. Brain enhancement is normal. Appearance is concordant with recent CT. MRI/Brain W/WO Contrast IMPRESSION: 1. No acute findings. 2. Moderate chronic white matter ischemic change. Electronically Signed: Madahv Calvin, at 16:56 EDT Tel , Service support ,
--- NOTE | 2018-09-01 12:35 | MRI_ITS ---
STUDY: MRA NECK WITH AND WITHOUT CONTRAST REASON FOR EXAM: Male, 83 years old. Blurred vision TECHNIQUE: 3-D ukny-my-rthvpt (TOF) imaging was performed in an 1.5 T MRI scanner. 14 IV Dotarem was administered for the contrast enhanced images. COMPARISON: None. FINDINGS: The aorta has a normal branching pattern. Right brachiocephalic, right common carotid, left subclavian and left common carotid arteries are patent. There is a 75% stenosis, moderate to high-grade in the proximal right subclavian artery prior to the origin of the vertebral artery. Bilateral vertebral arteries arise from the subclavian arteries. Left vertebral is dominant, right is smaller. Both intraosseous cervical vertebral arteries are patent. Intradurally left vertebral is dominant and continues as the basilar artery. Right intradural vertebral is small distal to the PICA complex, either stenotic or neoplastic. Bilateral internal carotid arteries are patent in the cervical segments and mildly tortuous, a finding associated with both age and hypertension. MRI/MRA Neck WITH and W/O Contrast IMPRESSION: 1. Patent cervical arteries. 2. Moderate to high-grade stenosis in the proximal right subclavian artery. Possibility of subclavian steal phenomenon is present, refer to functional evaluation. Electronically Signed: Madhav Calvin, at 17:02 EDT Tel , Service support ,
--- NOTE | 2018-09-01 12:35 | MRI_ITS ---
STUDY: MRA OF THE HEAD WITHOUT CONTRAST REASON FOR EXAM: Male, 83 years old. Blurry vision TECHNIQUE: 3-D wgwz-jg-mfsfod (TOF) imaging was performed with MIPs. The study was performed unenhanced. COMPARISON: None. FINDINGS: Normal bilateral petrous carotid arteries. Normal right cavernous carotid artery with a normal supraclinoid bifurcation. Normal left cavernous carotid artery with a normal supraclinoid bifurcation. Normal right A1 segments of the anterior cerebral artery. Normal left A1 segments of the anterior cerebral artery. Normal intact anterior communicating artery (ACOM). Normal bilateral A2 segments of the anterior cerebral arteries. Normal right M1 and M2 segments of the middle cerebral arteries, with a normal M1 bifurcation. Normal left M1 and M2 segments of the middle cerebral arteries, with a normal M1 bifurcation. There is a persistent origin of the right posterior cerebral artery with absence of the P1 segment of the right posterior cerebral artery. There is a persistent origin of the left posterior cerebral artery with absence of the P1 segment of the left posterior cerebral artery. Normal bilateral vertebral arteries. Normal basilar artery with a normal basilar bifurcation. The visualized bilateral superior cerebellar (SCA) arteries are normal. Normal bilateral P1, P2 and visualized P3 segments of the posterior cerebral arteries. There is no demonstrated aneurysm of the [place]. There is no major vessel occlusion or hemodynamically significant stenosis. There is no demonstrated abnormality of the visualized brain. MRI/MRA Head ONLY without Contrast IMPRESSION: Normal MRA of the head Electronically Signed: Dwayne Juárez MD at 15:29 EDT Tel , Service support ,
[2018-09-01] MEDS: Aspirin 81 MG TAB.CHEW PO (13:23)
[2018-09-01] MEDS: Clopidogrel Bisulfate 75 MG Tablet PO (13:24)
[2018-09-01 14:34] LABS: Cholesterol 189 mg/dL (200); High Density Lipoprotein 50 mg/dL; Triglycerides 109 mg/dL; Very Low Density Lipoprotein 22 mg/dL (5-40)
[2018-09-01 14:39] LABS: Hemoglobin A1c 6.3 % (4.2-6.3)
--- NOTE | 2018-09-01 15:08 | PCM.CONS.GEN ---
Reason for Consult Date of Consultation: 09/01/18 Reason for Consultation: Blurred vision History of Present Illness: The patient is a 83 year old M with PMH of HTN, CAD, Non-ST TX presented to [facility] ER on 09/01/2018 for blurred vision that started on 08/29/2018. Patient's blood pressure was 210/105, which he was given IV hydralazine and blood pressure decreased to 158/75. The previously week patient was instructed to go to ER when his blood pressure systolically was in the 230's, but did not seek treatment. Per patient, he was diagnosed with HTN but was not on medication. He also, stopped his Plavix and aspirin right after his stent placement per family last year. CT of brain showed no acute hemorrhage or infarct, but dis show a small old lacunar infarct in the left basal ganglia. Per family, about 8 years ago he loss vision and everything was dark, unaware of how long, but regained sight. Denied other acute symptoms or sought treatment. Per patient he thought his doctor told he was borderline for diabetes and is controlling it be diet. Patient restarted back on asa and plavix. LDL 117 and HgbA1c 6.3%. Patient stated that his blurred vision has decreased and it is minimal when focusing on objects far away. Prior to admission patient lives alone and independent with all ADLS and mobility. Past Medical History Past Medical History (Chronic Problems): Chronic Problems Status post coronary artery bypass graft (Chronic) Medical History: Medical History (Last Updated 09/01/18 @ 12:10 by German Hernandez DO) CAD (coronary artery disease) I25.10 HTN (hypertension) I10 Allergies No Known Allergies Allergy (Verified 08/25/17 11:08) Home Medications: Ambulatory Orders Medication Instructions Recorded NK 08/25/17 Surgical History: coronary bypass surgery Psychiatric History: No pertinent psych hx Lives: Alone Smoking Status: Never smoker Tobacco Use: Non-smoker Alcohol: None Drugs: None - *Family History Maternal History Items: No pertinent history, - - no CVA Paternal History Items: No pertinent history Review of Systems Constitutional: Denies: Chills, Fever, Weight Change Eyes: Reports: Blurred vision - minimal. Denies: Double vision HEENT: Denies: Head Aches, Sinus Congestion, Sinus Drainage Cardiovascular: Denies: Chest Pain, Chest Pressure, Chest Tightness, Light Headedness, Palpitations Respiratory: Denies: Cough, Shortness of breath at rest, Sputum production Gastrointestinal: Denies: Abdominal Pain, Nausea, Vomiting Genitourinary: Denies: Dysuria Musculoskeletal: Denies: Joint Pain, Joint Tenderness Skin: Denies: Rash, Wounds Neurological: Reports: Blurred vision - minimal. Denies: Focal weakness, Numbness, Tingling Psychiatric: Denies: Anxiety, Depression, Homicidal Ideations, Suicidal Ideations Hematologic/ Lymphatic: Denies: Easy Bruising, Easy Bleeding Patient Problems: Active and Suspected Problems (Last Updated 09/01/18 @ 12:10 by German Hernandez DO) Blurred vision (Acute) Hypertensive emergency (Acute) - Physical Exam General: Alert, Oriented x3, Cooperative HEENT: Atraumatic, PERRLA Oral: Moist Mucosa Neck: Supple, No JVD Lungs: Clear to auscultation, Normal air movement Cardiovascular: Regular rate, Regular Rhythm Abdomen: Bowel Sounds Present, Soft, Non Tender Extremities: No clubbing, No cyanosis, No edema Neurological: Cranial nerves II-XII grossly intact, Deep Tendon Reflexes 2+/4 and Symmetrical, Neuro grossly intact, Motor Exam 5/5 strength throughout Psych/Mental Status: Normal Affect, Appropriate, Alert and oriented to time, place, person, mood and affect Vital Signs Temp Pulse Resp BP Pulse Ox 98 F 65 16 165/72 H 98 09/01/18 13:00 09/01/18 13:00 09/01/18 13:00 09/01/18 13:00 09/01/18 13:00 Oxygen Delivery Method Room Air Weight: 78.33 kg Body Mass Index (BMI) 27.0 Laboratory Tests Past 24 Hrs 09/01/18 09/01/18 09/01/18 10:26 10:26 10:26 WBC 6.4 RBC 4.95 Hgb 14.5 Hct 42.7 MCV 86.3 MCH 29.3 MCHC 34.0 RDW 12.6 RDW Differential 39.2 Plt Count 162 MPV 11.3 Immature Gran % (Auto) 0.000 Neut % (Auto) 59.9 Lymph % (Auto) 27.5 [place] % (Auto) 11.4 H Eos % (Auto) 0.9 Baso % (Auto) 0.3 Absolute Neuts (auto) 3.8 Absolute Lymphs (auto) 1.76 Total Counted Not Reportable Sodium 136 Potassium 4.4 Chloride 104 Carbon Dioxide 29.0 Anion Gap 3 L BUN 18 Creatinine 1.14 Estim Creat Clear Calc 49.52 Est GFR (MDRD) Af Amer 79 Est GFR (MDRD) Non-Af 65 BUN/Creatinine Ratio 15.8 Glucose 134 H Hemoglobin A1c Calcium 8.8 Troponin I < 0.015 Triglycerides 109 Cholesterol 189 LDL Cholesterol 117 VLDL Cholesterol 22 HDL Cholesterol 50 09/01/18 10:26 WBC RBC Hgb Hct MCV MCH MCHC RDW RDW Differential Plt Count MPV Immature Gran % (Auto) Neut % (Auto) Lymph % (Auto) [place] % (Auto) Eos % (Auto) Baso % (Auto) Absolute Neuts (auto) Absolute Lymphs (auto) Total Counted Sodium Potassium Chloride Carbon Dioxide Anion Gap BUN Creatinine Estim Creat Clear Calc Est GFR (MDRD) Af Amer Est GFR (MDRD) Non-Af BUN/Creatinine Ratio Glucose Hemoglobin A1c 6.3 Calcium Troponin I Triglycerides Cholesterol LDL Cholesterol VLDL Cholesterol HDL Cholesterol Assessment/Plan All Active Problems (Last Updated 09/01/18 @ 12:10 by German Hernandez DO) Acute [id number]-[id number]-esrruferd myocardial infarction (Acute) Atherosclerotic heart disease [place] coronary artery w/angina pectoris (Acute) Blurred vision (Acute) Hypertensive emergency (Acute) The patient is a 83 year old M with PMH of HTN, CAD, Non-ST TX presented to [facility] ER on 09/01/2018 for blurred vision that started on 08/29/2018. Patient's blood pressure was 210/105, which he was given IV hydralazine and blood pressure decreased to 158/75. The previously week patient was instructed to go to ER when his blood pressure systolically was in the 230's, but did not seek treatment. Per patient, he was diagnosed with HTN but was not on medication. He also, stopped his Plavix and aspirin right after his stent placement per family last year. CT of brain showed no acute hemorrhage or infarct, but dis show a small old lacunar infarct in the left basal ganglia. Per family, about 8 years ago he loss vision and everything was dark, unaware of how long, but regained sight. Denied other acute symptoms or sought treatment. Patient restarted back on asa and plavix. Per patient he thought his doctor told he was borderline for diabetes and is controlling it be diet. LDL 117 and HgbA1c 6.3%. Patient stated that his blurred vision has decreased and it is minimal when focusing on objects far away.Prior to admission patient lives alone and independent with all ADLS and mobility. Plan Burred vision d/t HTN? Discussed with Dr. Rich, agreed with hospitalist MRI of brain, MRI of head and neck. O.k for aggressive blood pressure management unless evidence of stroke on MRI. Thank you for consult, call if needed.
[2018-09-01] MEDS: Lisinopril 20 MG Tablet PO (18:20)
[2018-09-01] MEDS: 0.9% NaCl Peripheral Flush Adult/Peds IV ×2 (21:47→21:49)
[2018-09-02] VITALS (7 sets, daily range): BP systolic 152–185; BP diastolic 70–88; PULSE 58–68; RESP 18; TEMP 36.9–37.3; O2SAT 96–100
[2018-09-02] MEDS: amLODIPine 5 MG Tablet PO (00:25)
[2018-09-02 08:26] LABS: Cholesterol 184 mg/dL (200); High Density Lipoprotein 49 mg/dL; Thyroid Stim Hormone (TSH) 2.17 uIU/mL (0.358-3.74); Triglycerides 98 mg/dL; Very Low Density Lipoprotein 20 mg/dL (5-40)
[2018-09-02] MEDS: Lisinopril 20 MG Tablet PO (09:00)
[2018-09-02] MEDS: Aspirin 81 MG TAB.CHEW PO (09:00)
[2018-09-02] MEDS: Clopidogrel Bisulfate 75 MG Tablet PO (09:00)
--- NOTE | 2018-09-02 09:53 | DCINST_ITS ---
- Discharge Diagnoses Current Active Problems: Current Active and Chronic Problems (Last Updated 09/01/18 @ 12:10 by German Hernandez DO) Blurred vision (Acute) Hypertensive emergency (Acute) You will use the following diet at home:: Cardiac Your food should be the consistency of: Regular Your liquids should be the consistency of: Regular/Thin Discharge Activity: Return to Normal Activity, May Not Drive - until cleared by opthalmology Call your doctor if you observe: Shortness of breath, Chest pain, Increased palpitations (irregular heartbeat), - - further change in vision Instructions: Taking NEREIDA Inhibitors, Controlling High Blood Pressure, Low-Salt Choices, Your High Blood Pressure Risk Factors Allergies/Adverse Reactions: Allergies No Known Allergies Allergy (Verified 08/25/17 11:08) Medications to take at Discharge Aspirin [Aspirin, Baby] 81 mg PO DAILY@0800 tab.chew 09/02/18 Atorvastatin Calcium 40 mg PO QHS #30 tab 09/02/18 Clopidogrel Bisulfate [Plavix] 75 mg PO DAILY #30 tab 09/02/18 Hydrochlorothiazide [Hctz] 25 mg PO DAILY #30 tab 09/02/18 Lisinopril [Zestril] 20 mg PO DAILY #30 tab 09/02/18 The following prescriptions were given: Atorvastatin Calcium 40 mg PO QHS #30 tab Transmission Status: Pending to [facility] Hydrochlorothiazide [Hctz] 25 mg PO DAILY #30 tab Transmission Status: Pending to [facility] Clopidogrel Bisulfate [Plavix] 75 mg PO DAILY #30 tab Transmission Status: Pending to [facility] Lisinopril [Zestril] 20 mg PO DAILY #30 tab Transmission Status: Pending to [facility] Primary Care Physician: Asa Merrill DO [Primary Care Provider] - Within 2 Weeks Test Results: Test results from this visit will be discussed in further detail at your follow- up appointment, if applicable. Please Follow Up With: Alondra Perez When: 1-2 weeks Please Follow Up With: Wei Montana MD When: 09/12/18 Proposed Discharge Date: 09/02/18
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
== END 2018-09-02 09:54 | disposition home or self-care (01) ==
LOC: ED 11:04 → PCU 12:06
PROVIDERS: Nurse Practitioner Family; Emergency Provider Emergency Medicine; Family Provider Family Medicine; PCP Family Medicine
DX: I16.1 Hypertensive emergency (principal); I10 Essential (primary) hypertension; H53.8 Other visual disturbances; I25.10 Atherosclerotic heart disease of native coronary artery without angina pectoris; Z95.1 Presence of aortocoronary bypass graft; I25.2 Old myocardial infarction; R94.31 Abnormal electrocardiogram [ECG] [EKG]; I08.0 Rheumatic disorders of both mitral and aortic valves; R06.00 Dyspnea, unspecified; R07.9 Chest pain, unspecified
CPT/HCPCS: 36415; 70450; 70544; 70549; 70553; 71045; 80048; 80061; 83036; 84443; 84484; 85025; 93005; 93306; 94762; 96374; 96375; 99218; 99285; A9575; A4216; G0378

== ENCOUNTER → 2018-09-12 15:37 | Outpatient (CLI) | payer MEDICARE, SELFPAY ==
[2018-09-12 10:57] VITALS: BMI 26.9
[2018-09-12 17:46] LABS: Erythrocyte Sedimentation Rate 10 mm/hr (0-20)
[2018-09-12 17:48] LABS: Absolute Lymphocyte Count 1.45 X10^3/uL (0.83-4.51); Absolute Neutrophil Count 2.9 X10^3/uL (2.0-7.7); Basophil# 0.02 X10^3/uL; Basophil% 0.4 % (0-1); Eosinophils% 1.9 % (0-5); Hematocrit 41.7 % (40-54); Hemoglobin 14.3 g/dL (13.0-16.5); Lymphocyte # 1.45 X10^3/ul (4.0); Lymphocyte % 28.3 % (19-41); Mean Corp Hgb Conc 34.3 g/dL (32-36); Mean Corpuscular Hgb 29.7 pg (27.0-32.0); Mean Corpuscular Volume 86.7 fL (80-94); Mean Platelet Vol. 10.9 fl (6.2-12.0); Monocyte# 0.62 X10^3/uL; Monocyte% 12.1 % (0-10); NRBC Flagged by Analyzer 0 % (0-5); Neutrophil # 2.93 X10^3/uL (2.7-7.7); Neutrophil % 57.1 % (47-70); Platelet Count 176 K/mm3 (150-450); RBC Distribution Width CV 11.9 % (11.6-14.6); RBC Distribution Width SD 37.6 fl (35.1-43.9); Red Blood Count 4.81 M/mm3 (4.6-6.2); White Blood Count 5.1 K/mm3 (4.4-11.0)
[2018-09-12 17:56] LABS: CRP 3.64 mg/L (0.0-3.0)
== END ==
PROVIDERS: Family Provider Family Medicine; PCP Family Medicine; Referring Provider Ophthalmology; Visit Provider Ophthalmology
DX: H47.013 Ischemic optic neuropathy, bilateral (principal)
CPT/HCPCS: 36415; 85025; 85652; 86140

== ENCOUNTER → 2019-10-11 09:40 | Outpatient (CLI) | payer MEDICARE, SELFPAY ==
[2019-09-26 14:27] VITALS: BMI 26.4
--- NOTE | 2019-10-11 09:45 | CDU_ITS ---
Reason For Study: Right carotid bruit Rt. Velocities/BP Lt. Velocities/BP Prox CCA 77.3/9.5 cm/sec. Prox CCA 88.4/13.8 cm/sec. Mid CCA 86.5/16 cm/sec. Mid CCA 106/16 cm/sec. Dist CCA 63/13.4 cm/sec. Dist CCA 54.4/9 cm/sec. Prox ICA 127.8/24.9 cm/sec. Prox ICA 74.1/16.3 cm/sec. Mid ICA 127.6/24.8 cm/sec. Mid ICA 86.3/20 cm/sec. Dist ICA 134.6/24.8 cm/sec. Dist ICA 96.1/22.5 cm/sec. Rt. ICA/CCA = 1.74. Lt. ICA/CCA = 1.09. Prox ECA 69.5/8.2 cm/sec. Prox ECA 90/6.5 cm/sec. Rt. Vert. 29.8 cm/sec. Lt. Vert. 41/11.3 cm/sec. Right Extracranial There is intimal thickening but no significant atherosclerotic plaque noted in the right common carotid artery. There is heterogeneous, irregular atherosclerotic plaque noted in the right internal carotid artery. The right internal carotid artery is tortuous. There is intimal thickening but no significant atherosclerotic plaque noted in the right external carotid artery. Antegrade flow is noted in the right vertebral artery. Right thyroid nonvascularized structure noted measuring approximently 1.36 x 1.56 x 1.75 cm. Left Extracranial There is homogeneous, smooth atherosclerotic plaque noted in the left common carotid artery. There is heterogeneous, irregular atherosclerotic plaque noted in the left internal carotid artery. There is intimal thickening but no significant atherosclerotic plaque noted in the left external carotid artery. Antegrade flow is noted in the left vertebral artery. Procedure Carotid Duplex [id number]. Exam performed in department. Interpretation Summary Heterogenous irregular plaque within the proximal right internal carotid artery with tortuosity noted and 50 to 69% stenosis. <50% stenosis right external carotid Right thyroid 1.36 x 1.56 x 1.75 cm cystic structure with some calcific internal echoes, no vascular flow, clinical correlation would be appropriate Irregular calcific plaque within the proximal left internal carotid with less than 50% stenosis. <50% stenosis left external carotid Patent and antegrade vertebrals bilaterally Ordering Physician: Kala Barbosa Referring Physician: Asa Merrill Performed By: Cecy Gallego RVT and Student
== END ==
PROVIDERS: PCP Family Medicine; Referring Provider Physician Assistant Medical; Visit Provider Physician Assistant Medical
DX: R09.89 Other specified symptoms and signs involving the circulatory and respiratory systems (principal); I25.10 Atherosclerotic heart disease of native coronary artery without angina pectoris
CPT/HCPCS: 93880

== ENCOUNTER → 2020-03-31 13:55 | Outpatient (CLI) | payer MEDICARE, SELFPAY ==
[2020-03-31 13:27] VITALS: BMI 26.9
[2020-03-31 16:09] LABS: Anion Gap 6 (5-15); BUN 17 mg/dL (7-18); BUN/Creat Ratio 14.3 RATIO (10-20); Calcium,Total 9.1 mg/dL (8.5-10.1); Chloride 96 mmol/L (98-107); Creatinine, Serum 1.19 mg/dL (0.70-1.30); EST Glomerular Filtration Rate 62 mL/min (>60); Est Glom Filt Rate - Afr Amer 75 mL/min (>60); Glucose 144 mg/dL (74-106); Sodium Level 131 mmol/L (136-145)
== END ==
PROVIDERS: PCP Family Medicine; Visit Provider Physician Assistant Medical
DX: I25.10 Atherosclerotic heart disease of native coronary artery without angina pectoris (principal)
CPT/HCPCS: 36415; 80048

== ENCOUNTER → 2021-01-20 10:54 | Outpatient (CLI) | payer MEDICARE, SELFPAY ==
[2021-01-20 12:46] LABS: AST(SGOT) 17 U/L (15-37); Alanine Aminotransfer ALT/SGPT 18 U/L (16-61); Albumin, Serum 3.9 g/dL (3.2-5.0); Alkaline Phosphatase 93 U/L (45-117); Anion Gap 8 (5-15); BUN 13 mg/dL (7-18); BUN/Creat Ratio 12.7 RATIO (10-20); Bilirubin, Direct 0.21 mg/dL (0.00-0.30); Calcium,Total 8.9 mg/dL (8.5-10.1); Chloride 96 mmol/L (98-107); Cholesterol 187 mg/dL (200); Creatinine, Serum 1.02 mg/dL (0.70-1.30); EST Glomerular Filtration Rate 73 mL/min (>60); Est Glom Filt Rate - Afr Amer 89 mL/min (>60); Globulin 3.4 g/dL (2.2-4.2); Glucose 68 mg/dL (74-106); High Density Lipoprotein 56 mg/dL; Protein, Total 7.3 g/dL (6.4-8.2); Sodium Level 132 mmol/L (136-145); Triglycerides 92 mg/dL; Very Low Density Lipoprotein 18 mg/dL (5-40)
== END ==
PROVIDERS: PCP Family Medicine; Visit Provider Internal Medicine Cardiovascular Disease
DX: E78.00 Pure hypercholesterolemia, unspecified (principal); I25.10 Atherosclerotic heart disease of native coronary artery without angina pectoris; Z95.1 Presence of aortocoronary bypass graft; I25.2 Old myocardial infarction; Z95.5 Presence of coronary angioplasty implant and graft; I10 Essential (primary) hypertension; E78.5 Hyperlipidemia, unspecified; E11.9 Type 2 diabetes mellitus without complications
CPT/HCPCS: 36415; 80048; 80061; 80076